=== PATIENT | female | born 1950 | race Caucasian/White ===

== ENCOUNTER 2021-09-26 08:36 | Emergency (ER) | payer MEDICARE, SELFPAY ==
--- NOTE | ~2021-09-26 | XR_ITS ---
EXAMINATION: XR chest 2V EXAM DATE: 09/26/2021 09:22 INDICATION: Chest pain Mid To Lt Arm X 3 Wks. TECHNIQUE: Frontal and lateral projections of the chest obtained and reviewed. There is no prior clarita dy for comparison. FINDINGS: The lungs are clear. There are no pleural effusions. The cardiomediastinal silhouette is within normal limits. There is no pneumothorax suspected. The bones and soft tissues are unremarkab le. IMPRESSION: No acute cardiopulmonary findings. The lungs are clear. There are no pleural effusions. The cardiomediastinal silhouette is within normal limits. There is no pneumothorax suspected. The bones and soft tissues are unremarkable. IMPRESSION: No acute cardiopulmonary findings. Reviewed, dictated and finalized at location A. IMPRESSION: No acute cardiopulmonary findings. The lungs are clear. There are no pleural effusions. The cardiomediastinal silhouette is within normal limit s. There is no pneumothorax suspected. The bones and soft tissues are unremar kable.
--- NOTE | ~2021-09-26 | CT_ITS ---
EXAMINATION: CTA chest PE protocol EXAM DATE: 09/26/2021 10:32 INDICATION: Chest pain, shortness of breath elevated dimer. TECHNIQUE: Spiral CTA of the chest (pulmonary arteries) was performed with 100 cc Omnipaque 350 intr avenous contrast injection. Images were acquired during the pulmonary arterial phase. Coronal maxi mum intensity projection 3D-reconstructions were created by the technologist on dedicated workstation . Axial, coronal and sagittal reformatted images were reviewed. The dose-length product (DLP) for t his examination was 305.73 mGy-cm. The exposure was tailored according to patient size (auto mA exp osure control), and iterative reconstruction (ASIR) was used as additional dose reduction technique. There is no prior study for comparison. FINDINGS: Pulmonary arteries are well opacified and without intraluminal filling defects. No thorac ic aortic dissection. Minimal linear basilar atelectasis. There are no pleural or pericardial effus ions. Tracheobronchial tree is patent. There is no mediastinal, hilar or axillary lymphadenopathy . There is no pneumothorax. Heart normal in size. No evidence of coronary arterial calcificatio n. Mid esophageal wall appears edematous, probably esophagitis but please clinically correlate. Esophage al cancer not entirely excludable. Upper abdomen is unremarkable. There is thoracic spondylosis wit hout osteoblastic or osteolytic lesions identified. IMPRESSION: 1. Mid esophageal wall edema, probably esophagitis. Clinical correlation. Cancer not excludable. 2. Basilar subsegmental atelectasis. No pulmonary emboli. Reviewed, dictated and finalized at location A. IMPRESSION: 1. Mid esophageal wall edema, probably esophagitis. Clinical correlation. Canc er not excludable. 2. Basilar subsegmental atelectasis. No pulmonary emboli.
--- NOTE | 2021-09-26 08:40 | ECG_ITS ---
Measurements Intervals [place] Rate: 68 P: 43 AL: 132 QRS: -2 QRSD: 78 T: 9 QT: 384 QTc: 410 Interpretive Statements SINUS RHYTHM BASELINE ARTIFACT- I, II, III, AVR, AVL, AVF NORMAL ECG Electronically Signed On 09-26-2021 15:49:25 CDT by Calvin Colin D.O.
[2021-09-26 08:44] VITALS: BP 135/75; PULSE 66; RESP 15; TEMP 36.4; O2SAT 99
[2021-09-26 08:49] VITALS: PULSE 69
--- NOTE | 2021-09-26 09:17 | ED.CHESTPAIN ---
HPI - Chest Pain General Chief Complaint: Chest Pain Stated Complaint: chest pain Time Seen by Provider: 09/26/21 08:39 Source: patient History of Present Illness HPI narrative: Patient presents with chest pain that is been present intermittently for the past 2 weeks. She describes it as a fullness or heaviness in the center of her chest that radiates to both of her arms. Today it seemed more intense so she came to the ER for evaluation. She also reports she has had increased shortness of breath over the past month or so. She denies fevers, cough, congestion. She denies any nausea or vomiting she denies any diaphoresis. Related Data Home Medications Medication Instructions Recorded Confirmed atorvastatin See Rx Instructions .ROUTE .COMPLEX 09/26/21 09/26/21 hydrocodone-acetaminophen [[place]] 1 tablet PO Q8H PRN 09/26/21 09/26/21 sertraline 25 mg PO DAILY 09/26/21 09/26/21 tizanidine 2 mg PO BID PRN 09/26/21 09/26/21 Allergies Allergy/AdvReac Type Severity Reaction Status Date / Time Penicillins AdvReac Nausea and Verified 09/26/21 08:53 Vomiting Review of Systems Review of Systems: CONSTITUTIONAL: Denies fever, chills, or sweats. EYES: Denies visual changes, redness, or discharge. ENT: Denies rhinorrhea, congestion, sore throat, or otalgia. CARDIOVASCULAR: Denies palpitations, or edema. RESPIRATORY: Denies cough. GASTROINTESTINAL: Denies abdominal pain, nausea, vomiting, or diarrhea. GENITOURINARY: Denies dysuria or hematuria. SKIN: Denies rash or itching. MUSCULOSKELETAL: Denies back pain, joint pain, or myalgia. NEUROLOGIC: Denies headache, numbness, dizziness, or weakness. PSYCHIATRIC: Denies anxiety or depression. All systems reviewed & are unremarkable except as noted in HPI and below PMFSH Past Medical History Medical History (Updated 09/26/21 @ 13:34 by Gaurav Whitaker MD) HTN (hypertension) Social History Social History (Updated 09/26/21 @ 09:19 by Gaurav Whitaker MD) Smoking status: Never smoker Substance use: never Exam Narrative: GENERAL: Well-appearing, well-nourished, and in no acute distress. HEAD: Normocephalic, atraumatic. EYES: PERRLA and EOMI. ENT: Nares clear, no rhinorrhea or epistaxis. Mucous membranes moist. NECK: Supple. No masses. No JVD CHEST: Clear to auscultation. No respiratory distress. No wheezes rales or rhonchi HEART: Regular rate and rhythm. No murmur heard. Normal peripheral pulses. ABDOMEN: Soft, nontender, nondistended, normal active bowel sounds. EXTREMITIES: Normal range of motion. No edema. SKIN: Warm, dry, no rash. NEURO: No focal deficits. Alert and oriented x3. PSYCH: Normal mood and affect. Course Reevaluation(s) Reevaluation #1: Patient is resting comfortably she does report intermittent right arm heaviness. Patient did have a spot positive Spurling sign on the right however the remainder of her neurological exam was intact. Date: 09/26/21 Time: 13:29 Vital Signs Vital signs: Vital Signs Temperature 36.4 C 09/26/21 08:44 Pulse Rate 66 09/26/21 08:44 Respiratory Rate 15 09/26/21 08:44 Blood Pressure 135/75 09/26/21 08:44 Pulse Oximetry 99 09/26/21 08:44 Temperature 36.4 C 09/26/21 08:44 Pulse Rate 80 09/26/21 13:46 Respiratory Rate 16 09/26/21 13:46 Blood Pressure 128/78 09/26/21 13:46 Pulse Oximetry 98 09/26/21 13:46 MDM - Chest Pain MDM Narrative Medical decision making narrative: H&P as above, vss, pt looks clinically well, exam reassuring, labs clinically unremarkable to include delta troponin with exception of the dimer img note inflammation around the esophagus concern for esophagitis, additional labs/img considered, symptomatic relief available as needed, on reevaluation pt continues to looks clinically well. Suspect esophagitis, dns ACS, pneumonia, PE, severe sepsis. plan to tx/monitor as op w/ pcm f/u findings/plan discussed with pt, pt agree/comfortable with plan, return precautions giv
[2021-09-26] MEDS: LIDOCAINE HCL 2% VISC SOLN 15 ML UDC 20 ML PO (09:25)
[2021-09-26] MEDS: ASPIRIN 81 MG CHEWABLE TABLET 324 MG PO (09:25)
[2021-09-26] MEDS: SODIUM CHLORIDE 0.9% IV 1,000 ML 999 ML IV CONT (09:25)
[2021-09-26] MEDS: MAG HYDROX/AL HYDROX/SIMETH 30 ML UDC PO (09:26)
[2021-09-26 09:37] LABS: Basophils Absolute Auto 0.1 K/mm3 (0.0-0.1); Basophils Percent Auto 0.8 % (0.2-1.2); Eosinophils Absolute Auto 0.4 K/mm3 (0-0.3); Hematocrit 39.9 % (37.0-47.0); Hemoglobin 13.1 g/dL (12.0-15.0); Immature Granulocyte Absolute 0.03 K/mm3 (0.00-0.031); Immature Granulocyte Percent A 0.4 % (0-0.5); Lymphocytes Percent Auto 25.6 % (18.3-44.2); Mean Corpuscular HGB Conc 32.8 g/dl (32-36); Mean Corpuscular Hemoglobin 31.2 pg (26-34); Mean Platelet Volume 9.5 fl (7.4-10.4); Monocytes Absolute Auto 0.4 K/mm3 (0.1-0.6); Monocytes Percent Auto 5.8 % (2.6-8.5); Neutrophils Absolute Auto 4.6 K/mm3 (1.3-6.7); Neutrophils Percent Auto 62.4 % (45.5-73.1); Platelet Count Result 287 k/mm3 (150-375); Red Cell Distribution Width 12.3 % (11.5-14.5); White Blood Count 7.4 K/mm3 (4.5-10.0)
[2021-09-26 09:48] LABS: INR 0.9; Prothrombin Time 12.1 Seconds (11.1-14.7)
[2021-09-26 09:51] LABS: Alanine Aminotransferase 16 U/L (4-35); Albumin Level 4.2 g/dL (3.5-5.1); Alkaline Phosphatase 77 U/L (38-126); Anion Gap 9 mmol/L (8-16); Aspartate Amino Transferase 28 U/L (14-36); Bilirubin,Total 0.6 mg/dL (0.2-1.3); Blood Urea Nitrogen 15 mg/dL (7-17); Calcium 9.2 mg/dL (8.4-10.2); Carbon Dioxide 26 mmol/L (22-30); Chloride 107 mmol/L (98-107); Estimated CRCL calculation 40 ml/min; Estimated Glomerular Filt Rate > 60; Glucose 82 mg/dL (65-110); Lipase 193 U/L (23-300); Potassium 4.2 mmol/L (3.4-5.0); Sodium 142 mmol/L (137-145)
[2021-09-26 09:51] LABS: D Dimer 0.67 ug/mL (<0.48)
[2021-09-26 10:01] LABS: Troponin I < 0.012 ng/mL (0.000-0.034)
[2021-09-26 10:34] VITALS: BP 116/63; PULSE 78; RESP 19; O2SAT 98
--- NOTE | 2021-09-26 11:02 | ECG_ITS ---
Measurements Intervals [place] Rate: 75 P: 37 NV: 142 QRS: 7 QRSD: 81 T: 16 QT: 386 QTc: 432 Interpretive Statements SINUS RHYTHM BASELINE ARTIFACT- I, II, III, AVR, AVL, AVF, V3-V6 NORMAL ECG Electronically Signed On 09-26-2021 15:54:27 CDT by Calvin Colin D.O.
--- NOTE | 2021-09-26 11:07 | PC.NURSE ---
1105-new onset of upper chest pain and rt arm pain. pain was previously relieved after gi cocktail. md notified. repeat ekg per orders
[2021-09-26 12:07] VITALS: BP 112/70; PULSE 79; RESP 17; O2SAT 96
[2021-09-26 12:53] LABS: Troponin I < 0.012 ng/mL (0.000-0.034)
[2021-09-26 13:46] VITALS: BP 128/78; PULSE 80; RESP 16; O2SAT 98
== END 2021-09-26 13:49 | disposition home or self-care (01) ==
PROVIDERS: Emergency Provider Emergency Medicine
DX: K20.90 Esophagitis, unspecified without bleeding (principal); M54.12 Radiculopathy, cervical region; R07.9 Chest pain, unspecified; I10 Essential (primary) hypertension
CPT/HCPCS: 36415; 71046; 71275; 80048; 80076; 83690; 84484; 85025; 85380; 85610; 85730; 93005; 96360; 99284; A9270; J7030; Q9967